=== PATIENT | female | born 1975 | race Caucasian/White ===

== ENCOUNTER 2016-04-10 21:46 | Emergency (ER) | payer BC ==
[2016-04-10] MEDS ORDERED: 0.9 % SODIUM CHLORIDE 1,000 ML BAG IV ONE (22:04)
--- NOTE | 2016-04-10 22:10 | Emergency Department Record ---
History of Present Illness - General Chief Complaint: Rapid heartbeat Stated Complaint: HEART RACING Time Seen by Provider: 04/10/16 21:55 Source: Patient, Family Mode of Arrival: Wheelchair Limitations: No limitations - History of Present Illness Initial Comments: 40 yo female presents with about 4 episodes of palpitations in the last 1.5 weeks. She states the episodes occur typical at night after she lays down. She feels fast and heavy heart beats. No syncope. No chest pain but she did feel some discomfort in her back. No syncope. It is not exertion related. No nausea or sweating. She saw her PCP who performed an EKG and stated it was normal. He expressed that it might be anxiety due to an upcoming surgery for hysterectiomy. No calf pain or edema. She is not a smoker. No personal or family history of CAD. She is on propranolol for HTN. No DM or elevated cholesteral. No SCD in the family. No other recent illness or changes in her health. MD Complaint: "Heart racing", Palpitations Onset/Timin -: Minutes(s) Context: Occurred during rest Arrythmia History: Other Associated Symptoms: Anxiety, Chest pain - Related Data Home Medications Medication Instructions Recorded Confirmed Last Taken Propranolol HCl 10 mg PO DAILY 04/10/16 04/10/16 Unknown Allergies Allergy/AdvReac Type Severity Reaction Status Date / Time Cephalosporins Allergy PT UNSURE Verified 04/10/16 22:04 OF REACTION Travel Screening - Travel/Exposure Within Last 30 Days Have you traveled within the last 30 days?: No - Travel/Exposure Within Last Year Have you traveled outside the [place] in the last year?: No - Additonal Travel Details Have you been exposed to anyone with a communicable illness?: No - Travel Symptoms Symptom Screening: None Review of Systems Constitutional: Denies: Chills, Fever, Malaise, Weakness Eyes: Denies: Eye discharge, Eye pain, Photophobia, Vision change ENT: Denies: Congestion, Throat pain Respiratory: Denies: Cough, Dyspnea, Hemoptysis, Stridor, Wheezes Cardiovascular: Reports: Palpitations. Denies: Chest pain, Dyspnea on exertion , Edema, Syncope Endocrine: Denies: Fatigue, Polydipsia, Polyuria Gastrointestinal: Denies: Abdominal pain, Diarrhea, Nausea, Vomiting Genitourinary: Denies: Dysuria, Urgency Musculoskeletal: Denies: Arthralgia, Back pain, Myalgia, Neck pain Skin: Denies: Bruising, Change in color, Rash Neurological: Denies: Confusion, Headache, Weakness Psychiatric: Denies: Anxiety Hematological/Lymphatic: Denies: Anemia, Blood Clots, Easy bleeding, Easy bruising, Swollen glands Past Medical History - SOCIAL HISTORY Smoking Status: Never smoker Alcohol Use: Occassional Drug Use: None - RESPIRATORY Hx Respiratory Disorders: No - CARDIOVASCULAR Hx Cardio Disorders: Yes Hx Hypertension: Yes - NEURO Hx Neuro Disorders: No - GI Hx GI Disorders: No - Hx Genitourinary Disorders: No - ENDOCRINE Hx Endocrine Disorders: No - MUSCULOSKELETAL Hx Musculoskeletal Disorders: No - HEMATOLOGY/ONCOLOGY Hx Hematology/Oncology Disorders: No Family Medical History Any Significant Family History?: No Physical Exam - General General Appearance: Alert, Oriented x3, Cooperative, No acute distress Limitations: No limitations - Head Head exam: Normal inspection - Eye Eye exam: Normal appearance, PERRL. negative: Conjunctival injection, Periorbital swelling, Scleral icterus - ENT ENT exam: Normal exam, Mucous membranes moist Ear exam: Normal external inspection Nasal Exam: Normal inspection Mouth exam: Normal external inspection - Neck Neck exam: Normal inspection, Full ROM. negative: Lymphadenopathy, Tenderness - Respiratory Respiratory exam: Normal lung sounds bilaterally. negative: Accessory muscle use, Decreased breath sounds, Prolonged expiratory, Respiratory distress, Rhonchi, Stridor, Wheezes - Cardiovascular Cardiovascular Exam: Regular rate, Normal rhythm, Normal heart sounds Peripheral Pulses: 2+: Radial (R), Radial (L) - GI/Abdominal GI/Abdominal exam: Soft. negative: Tenderness - Rectal Rectal exam: Deferred - exam: Deferred - Extremities Extremities exam: Normal inspection, Full ROM, Normal capillary refill. negative: Pedal edema, Tenderness - Back Back exam: Reports: Normal inspection, Full ROM. Denies: Muscle spasm, Rash noted, Tenderness - Neurological Neurological exam: Alert, Normal gait, Oriented X3, Reflexes normal - Psychiatric Psychiatric exam: Normal affect, Normal mood - Skin Skin exam: Dry, Intact, Normal color, Warm Course Vital Signs 04/10/16 21:55 Pulse Rate 95 H Respiratory 20 Rate Blood Pressure 161/108 Pulse Ox 100 - Reevaluation(s) Reevaluation #1: EKG 21:56 NSR with mild variation CW sinus arrhythmia, rate 72, intervals normal , axis normal ST normal, QT normal, No Brugada signs. Normal EKG 04/10/16 22:05 Reevaluation #2: HR 70 NSr on the monitor CBC reviewed No acute changes 04/10/16 22:44 Reevaluation #3: Patient remains asymptomatic We discussed follow up referral with cardiology was made 04/10/16 23:04 Medical Decision Making - Lab Data Result diagrams: 04/10/16 22:00 04/10/16 22:00 Disposition Disposition: Discharge Clinical Impression: Palpitations Disposition: Home, Self-Care Condition: (1) Good Instructions: Palpitations (ED) Additional Instructions: Return immediately if the palpitations return You are being referred to the cardiology specialty clinic for your recurrent episodes of heart racing Referrals: GRACE BEAVER [DOCTOR OF OSTEOPATH] - [facility] Specialty Clinics [Provider Group] Forms: Patient Portal Access Time of Disposition: 23:04
[2016-04-10 22:17] LABS: HEMATOCRIT 35.9 % (35.0-47.0); HEMOGLOBIN 12.1 gm/dl (11.6-16.0); MEAN CELL VOLUME 86.3 fl (81-97); MEAN CORPUSCULAR HEMOGLOBIN 29.1 pg (27-33); MEAN CORPUSCULAR HGB CONC 33.7 g/dl (32-36); MEAN PLATELET VOLUME 10.3 fl (7.4-10.4); PLATELET COUNT 308 K/uL (130-400); RED BLOOD COUNT 4.16 M/uL (3.80-5.40); RED CELL DISTRIBUTION WIDTH 13.3 % (11.5-14.5); WHITE BLOOD COUNT W/O DIFF 5.1 K/uL (4.2-12.2)
[2016-04-10 22:31] LABS: ALB/GLOB RATIO 1.6 (1.1-1.8); ALBUMIN 4.6 gm/dL (3.5-5.0); ALKALINE PHOSPHATASE 64 U/L (38-126); ALT/SGPT 25 U/L (9-52); ANION GAP 11.8 (7-16); AST/SGOT 26 U/L (14-36); BILIRUBIN,TOTAL 0.32 mg/dL (0.2-1.3); BLOOD UREA NITROGEN 12 mg/dL (7-17); CARBON DIOXIDE 26.2 mmol/L (22-30); CREATININE 0.8 mg/dL (0.52-1.04); EST GLOMERULAR FILTRATION RATE > 60 ml/min; GLUCOSE,RANDOM 86 mg/dL (70-110); TOTAL PROTEIN 7.5 gm/dL (6.3-8.2)
[2016-04-10 23:01] LABS: THYROID STIMULATING HORMONE 2.69 uIU/ml (0.465-4.68)
== END 2016-04-10 23:15 | disposition home or self-care (01) ==
LOC: ER 21:46
DX: R00.2 Palpitations (principal); M54.6 Pain in thoracic spine; I10 Essential (primary) hypertension
CPT/HCPCS: 80053; 83735; 84443; 85027; 93005; 93010; 99284; J7030